=== PATIENT | female | born 1970 | race Two or more races ===

== ENCOUNTER 2017-05-29 11:57 | Emergency (ER) | payer MEDICAID ==
[~2017-05-29] VITALS: Ht 157.5 cm; Wt 63.5 kg
[2017-05-29] MEDS ORDERED: ONDANSETRON 4 MG TAB.RAPDIS SL ONE (12:30)
[2017-05-29] MEDS ORDERED: MORPHINE SULFATE INJ 2 MG/ML DISP.SYRIN IM ONE (12:30)
[2017-05-29] MEDS ORDERED: KETOROLAC TROMETHAMINE INJ 60 MG/2 ML VIAL IM ONE (12:30)
--- NOTE | 2017-05-29 12:35 | NUR ---
BB SELF BACK PAIN S/P SLIP AND FALL AFTER SLIPPING ON [employer]. NAD NOTED. VSS. DENIES HEAD/NECK TRAUMA. SEEN BY CAMPUS ADMINISTRATIVE ASSISTANT FOR EVAL. SAFETY AND COMFORT MEASURES PROVIDED. WILL MONITOR.
[2017-05-29] MEDS ORDERED: KETOROLAC TROMETHAMINE INJ 30 MG/ML VIAL ONE (12:57)
[2017-05-29] MEDS ORDERED: ONDANSETRON 4 MG TAB.RAPDIS ONE (12:58)
[2017-05-29] MEDS ORDERED: MORPHINE SULFATE INJ 4 MG/ML DISP.SYRIN ONE (12:58)
[2017-05-29] MEDS ORDERED: MORPHINE SULFATE INJ 10 MG/ML DISP.SYRIN ONE (13:00)
--- NOTE | 2017-05-29 13:00 | NUR ---
PT MEDICATED ORDERED.
--- NOTE | 2017-05-29 14:20 | NUR ---
Pt ambulatory with a steady gait.
--- NOTE | 2017-05-29 14:31 | NUR ---
Patient discharged to home in stable condition. Written and verbal after care instructions given. Patient verbalizes understanding of instruction.
[2017-05-29 14:35] VITALS: BP 122/69
== END 2017-05-29 14:37 | disposition home or self-care (01) ==
LOC: ER 11:58
DX: S39.82XA Other specified injuries of lower back, initial encounter (principal); I10 Essential (primary) hypertension; W01.10XA Fall on same level from slipping, tripping and stumbling with subsequent striking against unspecified object, initial encounter; Y93.89 Activity, other specified; Y92.89 Other specified places as the place of occurrence of the external cause; Y99.8 Other external cause status
CPT/HCPCS: 96372 ×2; 99284; A4606; J1885; J2270; Q0162; Z7610

== ENCOUNTER 2018-11-21 15:42 | Emergency (ER) | payer SELFPAY ==
[~2018-11-21] VITALS: Ht 152.4 cm; Wt 65.8 kg
--- NOTE | 2018-11-21 16:00 | NUR ---
patient presented to the ER c/o L sided facial numbness since this morning at 0700 this morning. on room air, breathing evenly and unlabored. Connected to the monitor and pulse ox. Kept comfortable, will continue to monitor accordingly.
[2018-11-21 18:51] VITALS: BP 122/66
--- NOTE | 2018-11-21 18:52 | NUR ---
Patient discharged to home in stable condition. Written and verbal after care instructions given. Patient verbalizes understanding of instruction.IV removed. Catheter intact and site benign. Pressure and 4x4 applied to site. No bleeding noted.
== END 2018-11-21 18:51 | disposition home or self-care (01) ==
LOC: ER 15:51
DX: G51.0 Bell's palsy (principal); Z86.73 Personal history of transient ischemic attack (TIA), and cerebral infarction without residual deficits
CPT/HCPCS: 70450-TC